=== PATIENT | female | born 1990 | race Caucasian/White ===

== ENCOUNTER 2017-12-31 23:10 | Emergency (ER) | payer OTHER ==
[2017-12-31] MEDS ORDERED: diphenhydrAMINE 50 MG Cap PO ONE (23:44)
[2017-12-31] MEDS ORDERED: predniSONE 20 MG Tab PO ONE (23:44)
[2017-12-31] MEDS ORDERED: Famotidine 20 MG Tab PO ONE (23:45)
--- NOTE | 2018-01-01 00:54 | EDM.PDOC ---
ED HPI GENERAL MEDICAL PROBLEM - General Chief Complaint: Respiratory Problem Stated Complaint: RAPID HEART BEAT POSSIBLE REACTION TO ANTIBOTICS Time Seen by Provider: 12/31/17 23:23 Source of Information: Reports: Patient History Limitations: Reports: No Limitations - History of Present Illness INITIAL COMMENTS - FREE TEXT/NARRATIVE: The patient presents with a possible allergic reaction. The patient has been having a sore throat and she went to the clinic and was put on Augmentin. She also has some congestion and post nasal drip. She did not feel right from the first dose of the meds. She then developed some shortness of breath tonight and she vomited once. She has some swelling in her throat. Her father and brother are both allergic to penicillins. She has no rash. Onset: Gradual Duration: Hour(s): Severity: Moderate Improves with: Reports: None Worsens with: Reports: None Associated Symptoms: Reports: Nausea/Vomiting, Shortness of Breath. Denies: Chest Pain, Cough, Fever/Chills, Headaches Chest Pain Score (Numeric/FACES): 7 - Related Data Allergies Allergy/AdvReac Type Severity Reaction Status Date / Time cat dander Allergy Swollen Verified 12/31/17 23:20 Eyes pollen extracts Allergy Swollen Verified 12/31/17 23:20 Eyes Home Meds: Home Meds Loratadine/Pseudoephedrine [Claritin-D 24 Hour Tablet] 1 each PO DAILY #15 tab.er.24h 01/01/18 [Rx] predniSONE [Prednisone] 40 mg PO DAILY #10 tablet 01/01/18 [Rx] Past Medical History - Past Surgical History GI Surgical History: Reports: Hernia, Abdominal Social & Family History - Tobacco Use Smoking Status *Q: Former Smoker Used Tobacco, but Quit: Yes Month/Year Tobacco Last Used: 7 mo ago - Caffeine Use Caffeine Use: Reports: Coffee - Recreational Drug Use Recreational Drug Use: No ED ROS GENERAL - Review of Systems Review Of Systems: See Below Constitutional: Reports: No Symptoms HEENT: Reports: Throat Swelling Respiratory: Reports: Shortness of Breath. Denies: Cough Cardiovascular: Reports: No Symptoms Endocrine: Reports: No Symptoms GI/Abdominal: Reports: No Symptoms : Reports: No Symptoms Musculoskeletal: Reports: No Symptoms ED EXAM, GENERAL - Physical Exam Exam: See Below Exam Limited By: No Limitations General Appearance: Alert, No Apparent Distress Ears: Normal External Exam Nose: Normal Inspection Throat/Mouth: Normal Inspection Head: Atraumatic, Normocephalic Neck: Supple, Non-Tender, Lymphadenopathy (L), Lymphadenopathy (R) Respiratory/Chest: No Respiratory Distress, Lungs Clear, Normal Breath Sounds Cardiovascular: Regular Rate, Rhythm, No Edema, No Murmur GI/Abdominal: Soft, Non-Tender, No Organomegaly, No Mass Back Exam: Normal Inspection Extremities: Normal Inspection Course - Vital Signs Last Recorded V/S: Last Vital Signs Temp 97.6 F 12/31/17 23:15 Pulse 80 12/31/17 23:15 Resp 18 12/31/17 23:15 BP 124/87 12/31/17 23:15 Pulse Ox 100 12/31/17 23:15 - Orders/Labs/Meds Meds: Medications Discontinued Medications Generic Name Dose Route Start Last Admin Trade Name Prosperq PRN Reason Stop Dose Admin Diphenhydramine HCl 50 mg 12/31/17 23:44 12/31/17 23:54 Benadryl PO 12/31/17 23:45 50 mg ONETIME ONE Administration Famotidine 20 mg 12/31/17 23:45 12/31/17 23:54 Pepcid PO 12/31/17 23:46 20 mg ONETIME ONE Administration Prednisone 40 mg 12/31/17 23:44 12/31/17 23:54 Prednisone PO 12/31/17 23:45 40 mg ONETIME ONE Administration - Re-Assessments/Exams Free Text/Narrative Re-Assessment/Exam: 01/01/18 00:52 I gave her some prednisone, benadryl 50mg PO, and pepcid 20mg by mouth. She feels better. I will discharge her home withe some prednisone and claritin D and I will have her avoid penicillin. Departure - Departure Time of Disposition: 00:55 Disposition: Home, Self-Care 01 Condition: Good Clinical Impression: Allergic reaction caused by a drug Qualifiers: Encounter type: initial encounter Qualified Code(s): T78.40XA - Allergy, unspecified, initial encounter - Discharge Information *PRESCRIPTION DRUG MONITORING PROGRAM REVIEWED*: Not Applicable *COPY OF PRESCRIPTION DRUG MONITORING REPORT IN PATIENT PITO: Not Applicable Prescriptions: Loratadine/Pseudoephedrine [Claritin-D 24 Hour Tablet] 1 each PO DAILY #15 tab.er.24h predniSONE [Prednisone] 40 mg PO DAILY #10 tablet Referrals: PCP,None [Primary Care Provider] - Additional Instructions: Take the prednisone daily for 5 days. Take pepcid daily for 5 days. Take benadryl for any swelling or itching. Take the claritin D 24 daily. Please return if you are worse. Do not take any penicillin. It appears that you are allergic.
== END 2018-01-01 01:15 | disposition home or self-care (01) ==
LOC: JD.ED 23:10
DX: R06.02 Shortness of breath (principal); R11.2 Nausea with vomiting, unspecified; T36.0X5A Adverse effect of penicillins, initial encounter; Z91.048 Other nonmedicinal substance allergy status; Z87.891 Personal history of nicotine dependence
CPT/HCPCS: 99283; A9270

== ENCOUNTER 2018-01-01 13:36 | Emergency (ER) | payer OTHER ==
[2018-01-01] MEDS ORDERED: Sodium Chloride 0.9% 10 ML Syringe FLUSH PRN (15:06)
--- NOTE | 2018-01-01 15:09 | EDM.PDOC ---
ED HPI GENERAL MEDICAL PROBLEM - General Chief Complaint: Respiratory Problem Stated Complaint: SOB NOT BETTER Time Seen by Provider: 01/01/18 14:14 Source of Information: Reports: Patient History Limitations: Reports: No Limitations - History of Present Illness INITIAL COMMENTS - FREE TEXT/NARRATIVE: The patient is a 27-year-old female with a chief complaint of chest pain. She states that she's been getting chest pain intermittently for years. She has seen a doctor for previously and she has had a chest x-ray but no other testing. She is concerned that her symptoms haven't been taken seriously. She states that the pain is actually quite severe when she gets it. It is located in the center of her chest slightly on the left side. It seems like she has some constant pain but then it intermittently worse. There is no clear exacerbating or relieving factors other than it does hurt more when her chest is palpated. Pain is worse with inspiration. She doesn't currently feel short of breath but she has intermittent episodes where she feels like she can't catch her breath. No injury. No unusual exercise or exertion. No recent vomiting or nausea or abdominal pain. She did have a stuffy nose, sore throat, and cough a few days ago. She saw a provider at the [facility] who prescribed her an antibiotic for reasons that are unclear to me. She was then seen here in the middle the night last night with concern for possible allergic reaction to the medication. No lower extremity pain or swelling. She did recently travel here from [place], no other immobilization. No exogenous estrogen use. No family history of DVT or PE. Chest Pain Score (Numeric/FACES): 5 - Related Data Allergies Allergy/AdvReac Type Severity Reaction Status Date / Time cat dander Allergy Swollen Verified 01/01/18 14:03 Eyes Penicillins Allergy Vomiting Verified 01/01/18 14:04 pollen extracts Allergy Swollen Verified 01/01/18 14:03 Eyes Home Meds: Home Meds Loratadine/Pseudoephedrine [Claritin-D 24 Hour Tablet] 1 each PO DAILY #15 tab.er.24h 01/01/18 [Rx] predniSONE [Prednisone] 40 mg PO DAILY #10 tablet 01/01/18 [Rx] Past Medical History - Past Surgical History GI Surgical History: Reports: Hernia, Abdominal Social & Family History - Tobacco Use Smoking Status *Q: Former Smoker Used Tobacco, but Quit: Yes Month/Year Tobacco Last Used: 2016 - Caffeine Use Caffeine Use: Reports: Coffee ED ROS GENERAL - Review of Systems Review Of Systems: See Below HEENT: Reports: Rhinitis Cardiovascular: Reports: Chest Pain ED EXAM, GENERAL - Physical Exam Exam: See Below Exam Limited By: No Limitations General Appearance: Alert, Anxious, Mild Distress Eye Exam: Bilateral Eye: Normal Inspection, PERRL Ears: Normal External Exam Nose: Normal Inspection Throat/Mouth: Normal Inspection, Normal Oropharynx, Normal Voice, No Airway Compromise Head: Atraumatic, Normocephalic Neck: Normal Inspection, Supple Respiratory/Chest: No Respiratory Distress, Lungs Clear, Normal Breath Sounds, Other (marked chest wall tenderness of left upper chest wall, no crepitus) Cardiovascular: Normal Peripheral Pulses, Regular Rate, Rhythm, No Edema, No Murmur GI/Abdominal: Soft, Non-Tender, No Distention. No: Rebound Back Exam: Normal Inspection Extremities: Normal Inspection, No Pedal Edema Neurological: Alert, Oriented, Normal Cognition, No Motor/Sensory Deficits Psychiatric: Normal Affect, Anxious, Tearful Skin Exam: Warm, Dry, Intact, Normal Color, No Rash Course - Vital Signs Last Recorded V/S: Last Vital Signs Temp 36.9 C 01/01/18 14:04 Pulse 79 01/01/18 14:04 Resp 16 01/01/18 17:45 BP 99/67 01/01/18 17:45 Pulse Ox 96 01/01/18 17:45 - Orders/Labs/Meds Orders: Active Orders 24 hr Category Date Time Status EKG 12 Lead [EKG Documentation Completion] [RC] STAT Care 01/01/18 15:06 Active Peripheral IV Care [RC] . DIRECTED Care 01/01/18 15:06 Active Peripheral IV Care [RC] . DIRECTED Care 01/01/18 15:07 Active Chest 2V [CR] Stat Exams 01/01/18 15:56 Taken HCG QUALITATIVE,URINE [URCHEM] Stat Lab 01/01/18 16:14 Ordered Sodium Chloride 0.9% [Saline Flush] Med 01/01/18 15:06 Active 10 ml FLUSH ASDIRECTED PRN Peripheral IV Insertion Adult [OM.PC] Routine Oth 01/01/18 15:06 Ordered Medication Orders Sodium Chloride (Saline Flush) 10 ml FLUSH ASDIRECTED PRN PRN Reason: Keep Vein Open Labs: Laboratory Tests 01/01/18 01/01/18 01/01/18 Range/Units 15:50 15:50 15:50 WBC 6.00 (3.98-10.04) K/mm3 RBC 4.57 (3.98-5.22) M/mm3 Hgb 14.2 (11.2-15.7) gm/L Hct 40.5 (34.1-44.9) % MCV 88.6 (79.4-94.8) fl MCH 31.1 (25.6-32.2) pg MCHC 35.1 (32.2-35.5) g/dl RDW Std Deviation 39.0 (36.4-46.3) fL Plt Count 223 (182-369) K/mm3 MPV 10.0 (9.4-12.3) fl Neut % (Auto) 75.5 H (34.0-71.1) % Lymph % (Auto) 19.8 (19.3-51.7) % [place] % (Auto) 4.7 (4.7-12.5) % Eos % (Auto) 0 L (0.7-5.8) Baso % (Auto) 0.0 L (0.1-1.2) % Neut # (Auto) 4.53 (1.56-6.13) K/mm3 Lymph # (Auto) 1.19 (1.18-3.74) K/mm3 [place] # (Auto) 0.28 (0.24-0.36) K/mm3 Eos # (Auto) 0.00 L (0.04-0.36) K/mm3 Baso # (Auto) 0.00 L (0.01-0.08) K/mm3 D-Dimer, Quantitative 0.23 (0.19-0.50) mg/L Sodium 140 (136-145) mEq/L Potassium 4.1 (3.5-5.1) mEq/L Chloride 104 (98-107) mEq/L Carbon Dioxide 27 (21-32) mEq/L Anion Gap 13.1 (5-15) BUN 13 (7-18) mg/dL Creatinine 0.7 (0.55-1.02) mg/dL Est Cr Clr Drug Dosing 91.90 mL/min Estimated GFR (MDRD) > 60 (>60) mL/min BUN/Creatinine Ratio 18.6 H (14-18) Glucose 103 (74-106) mg/dL Calcium 8.8 (8.5-10.1) mg/dL Magnesium 2.0 (1.8-2.4) mg/dl Total Bilirubin 0.3 (0.2-1.0) mg/dL AST 18 (15-37) U/L ALT 19 (14-59) U/L Alkaline Phosphatase 91 (46-116) U/L Troponin I < 0.017 (0.00-0.056) ng/mL Total Protein 8.0 (6.4-8.2) g/dl Albumin 4.1 (3.4-5.0) g/dl Globulin 3.9 gm/dL Albumin/Globulin Ratio 1.1 (1-2) Lipase 161 (73-393) U/L TSH 3rd Generation 1.266 (0.358-3.74) uIU/mL Urine HCG, Qual (NEGATIVE) 01/01/18 Range/Units 16:14 WBC (3.98-10.04) K/mm3 RBC (3.98-5.22) M/mm3 Hgb (11.2-15.7) gm/L Hct (34.1-44.9) % MCV (79.4-94.8) fl MCH (25.6-32.2) pg MCHC (32.2-35.5) g/dl RDW Std Deviation (36.4-46.3) fL Plt Count (182-369) K/mm3 MPV (9.4-12.3) fl Neut % (Auto) (34.0-71.1) % Lymph % (Auto) (19.3-51.7) % [place] % (Auto) (4.7-12.5) % Eos % (Auto) (0.7-5.8) Baso % (Auto) (0.1-1.2) % Neut # (Auto) (1.56-6.13) K/mm3 Lymph # (Auto) (1.18-3.74) K/mm3 [place] # (Auto) (0.24-0.36) K/mm3 Eos # (Auto) (0.04-0.36) K/mm3 Baso # (Auto) (0.01-0.08) K/mm3 D-Dimer, Quantitative (0.19-0.50) mg/L Sodium (136-145) mEq/L Potassium (3.5-5.1) mEq/L Chloride (98-107) mEq/L Carbon Dioxide (21-32) mEq/L Anion Gap (5-15) BUN (7-18) mg/dL Creatinine (0.55-1.02) mg/dL Est Cr Clr Drug Dosing mL/min Estimated GFR (MDRD) (>60) mL/min BUN/Creatinine Ratio (14-18) Glucose (74-106) mg/dL Calcium (8.5-10.1) mg/dL Magnesium (1.8-2.4) mg/dl Total Bilirubin (0.2-1.0) mg/dL AST (15-37) U/L ALT (14-59) U/L Alkaline Phosphatase (46-116) U/L Troponin I (0.00-0.056) ng/mL Total Protein (6.4-8.2) g/dl Albumin (3.4-5.0) g/dl Globulin gm/dL Albumin/Globulin Ratio (1-2) Lipase (73-393) U/L TSH 3rd Generation (0.358-3.74) uIU/mL Urine HCG, Qual Negative (NEGATIVE) Meds: Medications Generic Name Dose Route Start Last Admin Trade Name Freq PRN Reason Stop Dose Admin Sodium Chloride 10 ml 01/01/18 15:06 Saline Flush FLUSH ASDIRECTED PRN Keep Vein Open - Re-Assessments/Exams Free Text/Narrative Re-Assessment/Exam: 01/01/18 18:31 Chest x-ray shows no acute abnormality. EKG shows no acute abnormality. Labs including CBC, chemistry, troponin, and lipase are all within normal limits. I don't have a clear explanation for her episodic chest pain. She does have markedly chest wall tenderness. There are no external findings or crepitus or anything to suggest infection. At this point I don't feel the patient needs any further emergent medical workup. She does have some panic attack symptoms and we discussed this. She would not like to start on medication for anxiety at this time. Encouraged her to follow up with primary care provider as soon as possible and discussed return precautions. Departure - Departure Time of Disposition: 17:49 Disposition: Home, Self-Care 01 Clinical Impression: Chest pain Qualifiers: Chest pain type: unspecified Qualified Code(s): R07.9 - Chest pain, unspecified - Discharge Information Instructions: Nonspecific Chest Pain, [id number] Referrals: PCP,None [Primary Care Provider] - Forms: ED Department Discharge Additional Instructions: 1. Follow up with a primary doctor when able to discuss your ongoing chest pain symptoms. Call [phone] if you'd like to schedule with provider. 2. Your testing in the Emergency Department today including EKG, chest x-ray, troponin, electrolytes, blood counts, liver function test, and lipase (pancreas ) were all normal. 3. OK to take ibuprofen and/or acetaminophen as needed for chest pain. 4. Return to the ED as needed for severe pain, shortness of breath, or other concerning symptoms. - My Orders Last 24 Hours: My Active Orders 01/01/18 15:06 EKG 12 Lead [EKG Documentation Completion] [RC] STAT Peripheral IV Care [RC] . DIRECTED Sodium Chloride 0.9% [Saline Flush] 10 ml FLUSH ASDIRECTED PRN Peripheral IV Insertion Adult [OM.PC] Routine 01/01/18 15:07 Peripheral IV Care [RC] . DIRECTED 01/01/18 15:56 Chest 2V [CR] Stat 01/01/18 16:14 HCG QUALITATIVE,URINE [URCHEM] Stat - Assessment/Plan Last 24 Hours: My Active Orders 01/01/18 15:06 EKG 12 Lead [EKG Documentation Completion] [RC] STAT Peripheral IV Care [RC] . DIRECTED Sodium Chloride 0.9% [Saline Flush] 10 ml FLUSH ASDIRECTED PRN Peripheral IV Insertion Adult [OM.PC] Routine 01/01/18 15:07 Peripheral IV Care [RC] . DIRECTED 01/01/18 15:56 Chest 2V [CR] Stat 01/01/18 16:14 HCG QUALITATIVE,URINE [URCHEM] Stat
--- NOTE | 2018-01-02 07:31 | CR ---
Chest: Two views of the chest were obtained. Comparison: No prior chest x-ray. Heart size and mediastinum are normal. Lungs are clear. Bony structures are unremarkable. Impression: 1. Nothing acute is seen on two-view chest x-ray. Diagnostic code #1
== END 2018-01-01 18:00 | disposition home or self-care (01) ==
LOC: JD.ED 13:36
DX: R07.9 Chest pain, unspecified (principal); Z88.0 Allergy status to penicillin; Z91.048 Other nonmedicinal substance allergy status; Z87.891 Personal history of nicotine dependence
CPT/HCPCS: 36415; 71046; 71046-26; 80053; 81025; 83690; 83735; 84443; 84484; 85025; 85379; 93005; 93010; 99284-25; 99285-25